=== PATIENT | female | born 1985 | race Caucasian/White ===

== ENCOUNTER 2018-12-12 15:11 | Inpatient (IN) | payer BC ==
[2018-12-12] MEDS ORDERED: Clindamycin/D5W 900 mg/50 ml Premix Bag ONE (15:37)
[2018-12-12] MEDS ORDERED: Oxytocin 10 UNITS/ML VIAL ONE (15:50)
[2018-12-12] MEDS ORDERED: NS / Oxytocin 40 units/1000ml 1,000 ML ONE (15:51)
[2018-12-12] MEDS ORDERED: Lidocaine 1% (PF) 30 ML VIAL ONE (15:51)
[2018-12-12] MEDS ORDERED: HYDROcodone/Acetaminophen 5/325 mg Tablet PO PRN ×2 (16:12→17:30)
[2018-12-12] MEDS ORDERED: Ondansetron PF 4 MG/2 ML Vial IVP PRN (16:12)
[2018-12-12] MEDS ORDERED: Lidocaine 1% (PF) 30 ML VIAL SC PRN (16:12)
[2018-12-12] MEDS ORDERED: Ibuprofen 800 MG TAB PO PRN (16:12)
[2018-12-12] MEDS ORDERED: Methylergonovine 0.2 MG/ML VIAL IM PRN (16:12)
[2018-12-12] MEDS ORDERED: Carboprost 250 MCG/ML AMP IM PRN (16:12)
[2018-12-12] MEDS ORDERED: Promethazine HCl 25 MG/ML VIAL IM PRN (16:12)
[2018-12-12] MEDS ORDERED: Misoprostol 200 MCG TAB PR PRN (16:12)
[2018-12-12] MEDS ORDERED: NS / Oxytocin 40 units/1000ml 1,000 ML IV PRN (16:12)
[2018-12-12] MEDS ORDERED: Lactated Ringer's 1,000 ML IV SCH (16:15)
--- NOTE | 2018-12-12 16:18 | PDOC.OPDEL ---
OB Operative/Delivery Note Delivery Dr/Surgeon: Nicanor Pre-Delivery Diagnosis: active labor Procedure/Post Delivery Dx: spontaneous vaginal delivery Weeks gestation: 39 Anesthesia: local - Findings A Sex: female - 1 min: 9 - 5 min: 9 - Additional Findings/Plan Placenta delivered: spontaneous Repaired Obstetrical Laceration: 2nd degree Compilations/Other Findings: None Post delivery plan: routine recovery
--- NOTE | 2018-12-12 16:20 | PDOC.LDHP ---
Labor and Delivery H&P Chief complaint: contractions HPI: 33 yo at 39 weeks with onset of contractions this AM at 0500. Much stronger and more painful this PM about 200pm. Arrived to L&D in active labor. SROM at my arrival with clear fluid. Current gestational age (weeks): 39 Due date: 12/15/18 Dating criteria: last menstrual period, first trimester ultrasound Grav: 2 Para: 1 Current complications: none Abnormal US findings: No Current medications: pre-milton vitamins Previous surgical history: none Allergies/Adverse Reactions: Allergies Allergy/AdvReac Type Severity Reaction Status Date / Time Penicillins Allergy Verified 12/12/18 16:20 Social history: none - Physical Exam Vital signs reviewed and normal: yes General: breathing through contractions Heart: RRR Lungs: CTAB Abdomen: NTTP Extremeties: no edema FHT: category 1, variability present Currie contractions every: 2 minutes - Vaginal Exam cm dilated: 6 Effacement: 90% Station: 0 - OB Labs Blood type: O RH: positive Antibody Screen: negative HIV: negative RPR: negative HEPSAg: negative 1 hour GCT: negative GBS: positive Urine drug screen: not done Rubella: immune - Assessment L&D Assessment: term patient in labor - Plan Plan: admit to L&D, GBS antibiotic prophylaxis (Clindamycin since PCN allergy)
[2018-12-12 17:03] VITALS: BMI 26.6
[2018-12-12 17:10] LABS: Mean Corpuscular HGB CONC 34.1 g/dL (32.0-36.0); Mean Corpuscular Hemoglobin 31.8 pg (27.0-31.0); Mean Corpuscular Volume 93.1 fL (78.0-98.0); Mean Platelet Volume 6.9 fL (7.4-10.4); Platelet Count 398 thou/uL (130-400); RBC Distribution Width 12.3 % (11.5-14.5); Red Blood Cell (RBC) Count 4.39 mill/uL (4.20-5.40); White Blood Cell (WBC) Count 13.4 thou/uL (4.8-10.8)
[2018-12-12] MEDS ORDERED: Benzocaine-Menthol 82.5 ML CAN TOP PRN (17:30)
[2018-12-12] MEDS ORDERED: NS / Oxytocin 40 units/1000ml 1,000 ML IV SCH (17:30)
[2018-12-12] MEDS ORDERED: Lanolin Ointment 7 GM TUBE TOP PRN (17:30)
[2018-12-12] MEDS ORDERED: Milk Of Magnesia 30 ML UDCUP PO PRN (17:30)
[2018-12-12] MEDS ORDERED: Bisacodyl 10 MG SUPP PR PRN (17:30)
[2018-12-12 17:46] LABS: HBSAg Index 0.29 S/CO (0-0.99); Hep B Surf Ag Non-Reactive S/CO (NonReactive)
[2018-12-12 17:47] LABS: Syphilis Antibody Nonreactive (Nonreactive); Syphilis Antibody Index 0.05 S/CO (<1.00 Non-Reactive)
[2018-12-12] MEDS: Docusate Calcium (SURFAK) 240 MG CAP PO SCH (21:17)
[2018-12-12] MEDS: Ibuprofen 800 MG TAB PO SCH (21:18)
[2018-12-13] MEDS: Ibuprofen 800 MG TAB PO SCH ×3 (05:41→21:38)
[2018-12-13] MEDS: Ferrous Sulfate 325 MG TAB PO SCH ×2 (09:15→16:32)
[2018-12-13] MEDS: Docusate Calcium (SURFAK) 240 MG CAP PO SCH ×2 (09:17→21:38)
[2018-12-14] MEDS: Ibuprofen 800 MG TAB PO SCH (06:31)
[2018-12-14] MEDS: Docusate Calcium (SURFAK) 240 MG CAP PO SCH (09:39)
[2018-12-14] MEDS: Ferrous Sulfate 325 MG TAB PO SCH (09:39)
[2018-12-14 10:34] VITALS: BP 115/71; TEMP 97.8
--- NOTE | 2018-12-14 11:04 | PDOC.PP ---
Post Progress Note Post Day #: 1 Subjective: Doing well, lochia normal PO intake tolerated: yes Flatus: yes Ambulation: yes Vital Signs (12 hours) Temp Pulse Resp BP Pulse Ox 12/14/18 08:00 97.8 F 78 18 115/71 99 Weight Weight 170 lb - Physical Examination General: NAD Cardiovascular: no m/r/g, RRR Respiratory: clear to auscultation bilaterally, non-labored breathing Abdominal: + bowel sounds, lochia, no distention, appropriately TTP Result Diagrams: 12/12/18 16:01 Additional Labs: Post Labs Blood Type O POSITIVE 12/12/18 16:01 Hep Bs Antigen Non-Reactive S/CO (NonReactive) 12/12/18 16:01 (1) Vaginal delivery Code(s): O80 - ENCOUNTER FOR FULL-TERM UNCOMPLICATED DELIVERY Status: Acute - Assessment/Plan Routine PP care well Home tomorrow
--- NOTE | 2018-12-14 11:05 | PDOC.PP ---
Post Progress Note Post Day #: 2 Subjective: Doing well. No c/o. Pain minimal. Lochia normal. PO intake tolerated: yes Flatus: yes Ambulation: yes Vital Signs (12 hours) Temp Pulse Resp BP Pulse Ox 12/14/18 08:00 97.8 F 78 18 115/71 99 Weight Weight 170 lb - Physical Examination General: NAD Cardiovascular: no m/r/g, RRR Respiratory: clear to auscultation bilaterally, non-labored breathing Abdominal: + bowel sounds, lochia, no distention, appropriately TTP Result Diagrams: 12/12/18 16:01 Additional Labs: Post Labs Blood Type O POSITIVE 12/12/18 16:01 Hep Bs Antigen Non-Reactive S/CO (NonReactive) 12/12/18 16:01 (1) Vaginal delivery Code(s): O80 - ENCOUNTER FOR FULL-TERM UNCOMPLICATED DELIVERY Status: Acute - Assessment/Plan Doing well PP day #2 D/C home F/U in 6 weeks with me. Will see baby Sunday.
== END 2018-12-14 12:10 | disposition home or self-care (01) | DRG 807 ==
LOC: L&D/OP 15:11 → L&D-LIB 16:06 → 3SW 17:45
PROVIDERS: ADMIT Family Medicine; ATTEND Family Medicine
PROC: 10E0XZZ Delivery of Products of Conception, External Approach (ICD-10-PCS; principal; 2018-12-12)
PROC: 0KQM0ZZ Repair Perineum Muscle, Open Approach (ICD-10-PCS; 2018-12-12)
DX: O99.824 Streptococcus B carrier state complicating childbirth (principal); Z37.0 Single live birth; O70.1 Second degree perineal laceration during delivery; Z3A.39 39 weeks gestation of pregnancy; Z88.0 Allergy status to penicillin
CPT/HCPCS: 85027; 86780; 86850; 86900; 86901; 87340; 99285; J2001; J2590; J3490